=== PATIENT | female | born 1965 | race Caucasian/White ===

== ENCOUNTER 2024-10-31 21:46 | Inpatient (IN) | payer MEDICARE, OTHER ==
[~2024-10-31] VITALS: Ht 167.6 cm; Wt 69.9 kg
[2024-10-31] MEDS ORDERED: TIZA4TAB5 PO (22:28)
[2024-10-31] MEDS ORDERED: ALEN70TA3 PO (22:28)
[2024-10-31] MEDS ORDERED: NAPR-1164 PO (22:28)
[2024-10-31 23:25] LABS: ALANINE AMINOTRANSFERASE 33 U/L (14-59); ALBUMIN 3.4 g/dL (3.4-5.0); ALKALINE PHOSPHATASE 94 U/L (50-136); ASPARTATE AMINOTRANSFERASE 26 U/L (15-37); BILIRUBIN,TOTAL 0.3 mg/dL (0.2-1.0); CALCIUM 9.6 mg/dL (8.5-10.1); CARBON DIOXIDE 29 mmol/L (21-32); CHLORIDE 105 mmol/L (98-107); CREATININE 1.2 mg/dL (0.6-1.3); GLUCOSE 127 mg/dL (74-106); POTASSIUM 4.1 mmol/L (3.5-5.1); SODIUM SERUM 144 mmol/L (136-145); TOTAL PROTEIN, SERUM 6.8 g/dL (6.4-8.2); UREA NITROGEN, BLOOD 21 mg/dL (7-18)
[2024-10-31 23:32] LABS: BASOPHILS % (AUTO) 0.7 % (0.0-2.0); EOSINOPHILS # (AUTO) 0.2 K/uL (0.0-0.7); EOSINOPHILS % (AUTO) 4.1 % (0.0-7.0); HEMATOCRIT 38.4 % (31.2-41.9); HEMOGLOBIN 12.9 g/dL (10.9-14.3); LYMPHOCYTES % (AUTO) 25.3 % (20.5-51.5); MEAN CORPUSCULAR HEMOGLOBIN 30.4 uug (24.7-32.8); MEAN CORPUSCULAR HGB CONC 34 g/dL (32.3-35.6); MEAN CORPUSCULAR VOLUME 90.4 fL (75.5-95.3); MONOCYTES # (AUTO) 0.4 K/uL (0.1-1.30); MONOCYTES % (AUTO) 10.2 % (0.0-11.0); NEUTROPHILS # (AUTO) 2.5 K/uL (1.8-8.9); NEUTROPHILS % (AUTO) 59.7 % (38.5-71.5); PLATELET COUNT (AUTO) 217 K/uL (179-408); RED BLOOD CELL COUNT(AUTO) 4.24 MIL/uL (3.63-4.92); RED CELL DISTRIBUTION WIDTH 14.4 % (12.3-17.7); WHITE BLOOD COUNT (AUTO) 4.1 K/uL (3.8-11.8)
[2024-10-31 23:36] LABS: ETHANOL < 3 MG/DL (0-10)
[2024-10-31 23:38] LABS: ACETAMINOPHEN < 10.0 ug/mL (10-30)
[2024-11-01 03:50] LABS: *BILIRUBIN,URIN NEGATIVE (NEGATIVE); *BLOOD, URINE NEGATIVE (NEGATIVE); *CLARITY,URINE CLEAR (CLEAR); *COLOR,URINE YELLOW (YELLOW); *KETONES,URINE NEGATIVE (NEGATIVE); *PROTEIN,URINE NEGATIVE (NEGATIVE); *UROBILINOGEN,URINE 0.2 E.U./dl (NORMAL); LEUKOCYTE ESTERASE ,URINE NEGATIVE (NEGATIVE); NITRITE, URINE NEGATIVE (NEGATIVE); UGLUCOSE NEGATIVE (NEGATIVE)
[2024-11-01 03:57] LABS: *AMPHETAMINE, URINE NEGATIVE (NEGATIVE); *BARBITURATE, URINE NEGATIVE (NEGATIVE); *BENZODIAZEPINE, URINE NEGATIVE (NEGATIVE); *CANNABINOID, URINE NEGATIVE (NEGATIVE); *COCCAINE, URINE NEGATIVE (NEGATIVE); *OPIATE, URINE NEGATIVE (NEGATIVE); *PHENCYCLIDINE SCREEN,URINE NEGATIVE (NEGATIVE); FENTANYL, URINE NEGATIVE (NEGATIVE)
[2024-11-01] MEDS ORDERED: MAGNESIUM HYDROXIDE 30 ML LIQUID UDC PO PRN (06:00)
[2024-11-01] MEDS: BLOOD SUGAR DIAGNOSTIC 1 EACH STRIP VI ONE (06:00)
[2024-11-01] MEDS ORDERED: TEMAZEPAM 7.5 MG CAPSULE PO PRN ×3 (06:00→09:15)
[2024-11-01] MEDS ORDERED: ACETAMINOPHEN 325 MG TABLET PO PRN (06:00)
[2024-11-01] MEDS ORDERED: CLONAZEPAM 0.5 MG TABLET PO PRN ×2 (06:00)
[2024-11-01 06:07] VITALS: BP 108/79; TEMP 97.7; O2SAT 97
[2024-11-01 07:49] VITALS: BP 115/75; TEMP 98.4; O2SAT 96
[2024-11-01 15:00] VITALS: BP 116/76; TEMP 97.6; O2SAT 97
[2024-11-01] MEDS ORDERED: LIDO30AD10 TD (15:22)
[2024-11-01 20:00] VITALS: BP 100/66; TEMP 98.7; O2SAT 96
[2024-11-01] MEDS: DIVALPROEX 125 MG TABLET.DR PO SCH (20:48)
[2024-11-01] MEDS: risperiDONE 0.5 MG TABLET PO SCH (20:48)
[2024-11-01] MEDS: MAG HYDROX/AL HYDROX/SIMETH 30 ML LIQUID UDC PO PRN (22:20)
[2024-11-02 09:16] VITALS: BP 107/87; TEMP 97.6; O2SAT 98
[2024-11-02 11:20] VITALS: BP_SYST 118; BP_SYST 130; BP_DIAS 69; BP_DIAS 77; TEMP 98; TEMP 98.2; O2SAT 96; O2SAT 98
[2024-11-02] MEDS: diphenhydrAMINE 50 MG/1 ML VIAL IM ONE (11:23)
[2024-11-02] MEDS: OLANZAPINE 10 MG VIAL IM ONE (11:23)
[2024-11-02 12:02] VITALS: BP 113/77; TEMP 98; O2SAT 98
[2024-11-02] MEDS ORDERED: LORAZEPAM 2 MG/1 ML VIAL IM ONE (13:30)
[2024-11-02 16:05] VITALS: BP 108/71; TEMP 98; O2SAT 98
[2024-11-02] MEDS ORDERED: LIDOCAINE 5% PATCH TD PRN (17:15)
[2024-11-02] MEDS ORDERED: TIZANIDINE HCL 4 MG TABLET PO PRN (17:15)
[2024-11-02 20:00] VITALS: BP 121/83; TEMP 98.8; O2SAT 96
[2024-11-02] MEDS: CELECOXIB 100 MG CAPSULE PO SCH (20:22)
[2024-11-03] MEDS ORDERED: TEMAZEPAM 15 MG CAPSULE PO PRN (05:45)
[2024-11-03 08:01] VITALS: BP 140/88; TEMP 98; O2SAT 99
[2024-11-03 09:05] LABS: THYROID STIMULATING HORMONE 1.31 mIU/mL (0.358-3.740)
[2024-11-03 09:30] LABS: CALCIUM 9.3 mg/dL (8.5-10.1); MAGNESIUM 2.2 mg/dL (1.8-2.4); PHOSPHOROUS 3.2 mg/dL (2.5-4.9); POTASSIUM 3.3 mmol/L (3.5-5.1)
[2024-11-03 16:00] VITALS: BP 124/74; TEMP 98; O2SAT 98
[2024-11-03 20:00] VITALS: BP 82/57; TEMP 98; O2SAT 97
[2024-11-04 08:04] VITALS: BP 114/78; TEMP 98
[2024-11-04 19:53] VITALS: BP 121/70; TEMP 98.2; O2SAT 99
[2024-11-04] MEDS: CLONAZEPAM 0.5 MG TABLET PO PRN (20:12)
[2024-11-05] MEDS: diphenhydrAMINE 50 MG/1 ML VIAL IM ONE (08:09)
[2024-11-05] MEDS: OLANZAPINE 10 MG VIAL IM ONE (08:10)
[2024-11-05] MEDS: LORAZEPAM 2 MG/1 ML VIAL IM ONE (09:16)
[2024-11-05 16:04] VITALS: BP 108/69; TEMP 98; O2SAT 100
[2024-11-05 19:37] VITALS: BP 112/60; TEMP 98.4; O2SAT 99
[2024-11-06 07:30] VITALS: BP 126/88; TEMP 98; O2SAT 99
[2024-11-06 15:15] VITALS: BP 117/70; TEMP 98; O2SAT 96
[2024-11-06 20:00] VITALS: BP_SYST 117; BP_SYST 134; BP_DIAS 81; BP_DIAS 82; TEMP 97.7; TEMP 97.8; O2SAT 97
[2024-11-07 07:53] VITALS: BP 128/89; TEMP 98; O2SAT 96
[2024-11-07 15:01] VITALS: BP 121/81; TEMP 98; O2SAT 99
[2024-11-07 20:00] VITALS: BP 118/79; TEMP 97.8; O2SAT 97
[2024-11-08 08:07] VITALS: BP 123/85; TEMP 98.2; O2SAT 98
[2024-11-08] MEDS: OLANZAPINE 10 MG VIAL IM ONE (16:39)
[2024-11-08 19:45] VITALS: BP 129/85; TEMP 98.3; O2SAT 97
[2024-11-08] MEDS: OLANZAPINE 10 MG VIAL IM PRN (20:44)
[2024-11-09 08:02] VITALS: BP 103/79; TEMP 98.6; O2SAT 100
[2024-11-09] MEDS: risperiDONE 0.5 MG TABLET PO SCH (13:00)
[2024-11-09] MEDS: OLANZAPINE 10 MG VIAL IM PRN (14:01)
[2024-11-09 16:01] VITALS: BP 112/61; TEMP 98; O2SAT 100
[2024-11-09 20:29] VITALS: BP 116/66; TEMP 98.1; O2SAT 99
[2024-11-10 08:01] VITALS: BP 115/51; TEMP 97.8; O2SAT 100
[2024-11-10] MEDS: risperiDONE 1 MG TABLET PO SCH (12:24)
[2024-11-10 16:01] VITALS: BP 106/63; TEMP 97.8; O2SAT 100
[2024-11-10 20:00] VITALS: BP 95/56; TEMP 98; O2SAT 97
[2024-11-11 08:02] VITALS: BP 121/49; TEMP 98; O2SAT 100
[2024-11-11 16:04] VITALS: BP 103/64; TEMP 97.4; O2SAT 100
[2024-11-11 20:05] VITALS: BP 116/64; TEMP 98.1; O2SAT 96
[2024-11-12 08:04] VITALS: BP 123/76; TEMP 97.6; O2SAT 100
[2024-11-12] MEDS: DIVALPROEX 125 MG TABLET.DR PO SCH (08:29)
[2024-11-12] MEDS: risperiDONE 1 MG TABLET PO SCH ×2 (08:29→12:27)
[2024-11-12 16:02] VITALS: BP 109/68; TEMP 98; O2SAT 100
[2024-11-12 19:48] VITALS: BP 105/97; TEMP 98.1; O2SAT 99
[2024-11-13 09:35] VITALS: BP 138/78; TEMP 97.8; O2SAT 100
[2024-11-13] MEDS ORDERED: OLANZAPINE 10 MG VIAL IM PRN (15:45)
[2024-11-13 15:56] VITALS: BP 129/89; TEMP 98; O2SAT 99
[2024-11-13 19:54] VITALS: BP 101/71; TEMP 98.2; O2SAT 97
[2024-11-14 08:04] VITALS: BP 128/76; TEMP 97.6; O2SAT 100
[2024-11-14] MEDS: risperiDONE 1 MG TABLET PO SCH (08:41)
[2024-11-14 16:02] VITALS: BP 114/64; TEMP 98; O2SAT 96
[2024-11-15 07:53] VITALS: BP 113/74; TEMP 98; O2SAT 98
[2024-11-15 15:16] VITALS: BP 115/76; TEMP 98; O2SAT 99
[2024-11-15 19:53] VITALS: BP 112/64; TEMP 98.1; O2SAT 98
[2024-11-16 08:08] VITALS: BP 120/82; TEMP 98; O2SAT 98
== END 2024-11-16 13:30 | DRG 885 ==
LOC: ER 21:46 → GPS 11-01 02:05
PROVIDERS: ADMIT Psychiatry & Neurology Psychiatry; ATTEND Internal Medicine
DX: F31.2 Bipolar disorder, current episode manic severe with psychotic features (principal); F43.10 Post-traumatic stress disorder, unspecified; Y36.90XA War operations, unspecified, initial encounter; Y92.89 Other specified places as the place of occurrence of the external cause; H40.9 Unspecified glaucoma; M15.9 Polyosteoarthritis, unspecified; G89.29 Other chronic pain; F90.9 Attention-deficit hyperactivity disorder, unspecified type; M54.50 Low back pain, unspecified; M81.0 Age-related osteoporosis without current pathological fracture; R79.89 Other specified abnormal findings of blood chemistry; Z91.199 Patient's noncompliance with other medical treatment and regimen due to unspecified reason; E87.6 Hypokalemia; F10.20 Alcohol dependence, uncomplicated
CPT/HCPCS: 36415; 83735; 84100; 84443; 85025; G0480; J1200; J2060; J2358